=== PATIENT | female | born 1960 | race Caucasian/White ===

== ENCOUNTER → 2017-12-10 | Outpatient (CLI) | payer OTHER ==
--- NOTE | 2017-12-10 18:06 | WOMENS IMAGING REPORT ---
EXAM DESCRIPTION: BILAT SCREENING MAMMO W/CAD COMPLETED DATE/TIME: 12/10/2017 8:56 am REASON FOR STUDY: SCREENING MAMMO Z12.31 ENCNTR SCREEN MAMMOGRAM FOR MALIGNANT NEOPLASM OF HARI COMPARISON: 2014 TECHNIQUE: Standard craniocaudal and mediolateral oblique views of each breast recorded using digita l acquisition. LIMITATIONS: None. FINDINGS: Findings present which are benign by mammographic criteria. No suspicious masses, calcifi cations or architectural distortion. Pertinent benign findings: Stable bilateral breast parenchymal calcifications, right breast intramamm augusto node 11 to 12 o'clock position Read with the assistance of CAD. .[facility] - R2 Cenova Version 1.3 .[facility] Imaging - R2 Cenova Version 1.3 .[facility] Imaging - R2 Cenova Version 2.4 .[facility] - R2 Cenova Version 2.4 .REPLACED BY [facility] - R2 Head Of Commission Department Version 9.2 Benign mammographic findings may include one or more of the following: Smooth masses, popcorn/rim/co arse calcifications, asymmetries, post-procedure changes, and lesions with long-standing stability. IMPRESSION: BENIGN MAMMOGRAPHIC FINDINGS. BIRADS 2 BREAST DENSITY: b. There are scattered areas of fibroglandular density. BIRAD: 2 BENIGN FINDING(S) RECOMMENDATION: ROUTINE SCREENING yearly Please consider bilateral screening tomosynthesis in November 2018 COMMENT: The patient has been notified of the results by letter per SA requirements. Additional no tification policies are in place for contacting patient with suspicious or incomplete findings. Quality ID #[id number]: The [employer] recommends an annual screening mammogram for women aged 40 years or over. This facility utilizes a reminder system to ensure that all patients receive reminder letters, and/or direct phone calls for appointments. This includes reminders for routine scr eening mammograms, diagnostic mammograms, or other Breast Imaging Interventions when appropriate. Th is patient will be placed in the appropriate reminder system. The [employer] (ACR) has developed recommendations for screening MRI of the breast s in certain patient populations, to be used in conjunction with mammography. Breast MRI surveillanc e may be appropriate for women with more than 20% lifetime risk of developing breast cancer as deter mined by genetic testing, significant family history of the disease, or history of mantle radiation f or Hodgkins Disease. ACR Practice Guidelines 2008. TECHNICAL DOCUMENTATION: FINDING NUMBER: (1) ASSESSMENT: (1) JOB ID: [id number] [employer]- All Rights Reserved
== END ==
LOC: WI 08:42
PROVIDERS: ATTEND Family Medicine
DX: Z12.31 Encounter for screening mammogram for malignant neoplasm of breast (principal)
CPT/HCPCS: 77067

== ENCOUNTER → 2019-07-02 | Outpatient (CLI) | payer OTHER ==
--- NOTE | 2019-07-02 12:43 | WOMENS IMAGING REPORT ---
EXAM DESCRIPTION: BILAT SCREENING MAMMO W/CAD COMPLETED DATE/TIME: 07/02/2019 8:51 am REASON FOR STUDY: Z12.31 ENCOUNTER FOR SCREENING MAMMOGRAM FOR MALIGNANT NEOPLASM OF BREAST Z12.31 ENCNTR SCREEN MAMMOGRAM FOR MALIGNANT NEOPLASM OF HARI COMPARISON: 12/10/2017 and 10/17/2015. EXAM PARAMETERS: Standard craniocaudal and mediolateral oblique views of each breast recorded using digital acquisition and breast tomosynthesis. Read with the assistance of CAD. .[facility] - R2 Linen Sorter Version 9.2 LIMITATIONS: None. FINDINGS: RIGHT BREAST MASSES: Previous U mass in the superior breast appears slightly smaller. No suspicious masses. CALCIFICATIONS: Stable calcifications. ARCHITECTURAL DISTORTION: None. DEVELOPING DENSITY: None. ASYMMETRY: None noted. OTHER: No other significant findings. LEFT BREAST MASSES: No suspicious masses. CALCIFICATIONS: Calcifications in the upper-outer breast, located 9 to 11 cm from the nipple, have in creased. ARCHITECTURAL DISTORTION: None. DEVELOPING DENSITY: None. ASYMMETRY: None noted. OTHER: No other significant findings. IMPRESSION: Increasing calcifications in the upper-outer left breast. Stable mammographic appearanc e of the right breast. 0 Incomplete: Needs Additional Imaging Evaluation and/or prior Mammograms for Comparison. BREAST DENSITY: b. There are scattered areas of fibroglandular density. BIRAD: ASSESSMENT: 0 Incomplete: Needs Additional Imaging Evaluation and/or prior Mammograms for C omparison. RECOMMENDATION: RECOMMENDED FOLLOW-UP: Recommend additional evaluation with magnification views of t he left breast. Recommend routine screening mammography of the right breast. The patient will be contacted for additional imaging. COMMENT: The patient has been notified of the results by letter per MQSA requirements. Additional no tification policies are in place for contacting patient with suspicious or incomplete findings. Quality ID #[id number]: [employer] recommends an annual screening mammogram for women aged 40 years or over. This facility utilizes a reminder system to ensure that all patients receive reminder letters, and/or direct phone calls for appointments. This includes reminders for routine scr eening mammograms, diagnostic mammograms, or other Breast Imaging Interventions when appropriate. Th is patient will be placed in the appropriate reminder system. TECHNICAL DOCUMENTATION: FINDING NUMBER: (1) ASSESSMENT: (1) JOB ID: [id number] [employer]- All Rights Reserved Reading location - IP/workstation name: [email or web address]
== END ==
LOC: WI 08:25
PROVIDERS: ATTEND Family Medicine
DX: Z12.31 Encounter for screening mammogram for malignant neoplasm of breast (principal)
CPT/HCPCS: 77067

== ENCOUNTER → 2019-07-07 | Outpatient (CLI) | payer OTHER ==
--- NOTE | 2019-07-07 09:28 | WOMENS IMAGING REPORT ---
EXAM DESCRIPTION: LEFT DIAGNOSTIC MAMMO W/CAD COMPLETED DATE/TIME: 07/07/2019 9:05 am REASON FOR STUDY: R92.0 MAMMOGRAPHIC MICROCALCIFICATION FOUND ON DIAGNOSTIC IMAGING OF BREAST R92.0 MAMMOGRAPHIC MICROCALCIFICATION FOUND ON DX IMAGING OF COMPARISON: Multiple since 2014 EXAM PARAMETERS: Compression magnification craniocaudal, 90 mediolateral and mediolateral oblique i mages of the breast recorded with digital acquisition. Read with the assistance of CAD. .[facility] - Studio Mach[employer] Linotype Version 9.2 LIMITATIONS: None. FINDINGS: BREAST LATERALITY: Left MASSES: No suspicious masses. CALCIFICATIONS: Calcifications variable in size shape density, left breast upper outer quadrant, 10 c m the nipple, for which stereotactic sampling is recommended. Calcifications of concern were marked with a lac courte oreilles. ARCHITECTURAL DISTORTION: None. DEVELOPING DENSITY: None. ASYMMETRY: None noted. OTHER: No other significant findings. IMPRESSION: Calcifications in the left breast upper outer quadrant 10 cm from the nipple for which s tereotactic biopsy is recommended BREAST DENSITY: b. There are scattered areas of fibroglandular density. BIRAD: ASSESSMENT: 4 Suspicious. Biopsy should be performed in the absence of clinical contra-indic ation. RECOMMENDATION: RECOMMENDED FOLLOW UP: Left breast stereotactic biopsy for microcalcifications SPECIFIC INTERVENTION/IMAGING/CONSULTATION RECOMMENDED:Left breast stereotactic biopsy for microcalci fications COMMUNICATION:Patient notified by letter COMMENT: The patient has been notified of the results by letter per MQSA requirements. Additional no tification policies are in place for contacting patient with suspicious or incomplete findings. Quality ID #[id number]: The [employer] recommends an annual screening mammogram for women aged 40 years or over. This facility utilizes a reminder system to ensure that all patients receive reminder letters, and/or direct phone calls for appointments. This includes reminders for routine scr eening mammograms, diagnostic mammograms, or other Breast Imaging Interventions when appropriate. Th is patient will be placed in the appropriate reminder system. TECHNICAL DOCUMENTATION: FINDING NUMBER: (1) ASSESSMENT: (1) JOB ID: [id number] [employer]- All Rights Reserved Reading location - IP/workstation name: [email or web address]
== END ==
LOC: WI 08:15
PROVIDERS: ATTEND Family Medicine
DX: R92.0 Mammographic microcalcification found on diagnostic imaging of breast (principal)

== ENCOUNTER → 2019-08-06 | Day surgery (SDC) | payer OTHER ==
[~2019-08-06] MED LIST: LIDOCAINE 1%/EPINEPHRINE INJ 20 ML VIAL ONE; LIDOCAINE 2% INJ (20 MG/ML) 20 ML MDV ONE
--- NOTE | 2019-08-11 16:15 | RADIOLOGY REPORT (SQ) ---
EXAM DESCRIPTION: STEREO BREAST BX; LEFT DIG DX MAMMO NO CHG COMPLETED DATE/TIME: 08/10/2019 11:44 am; 08/06/2019 2:29 pm REASON FOR STUDY: R92.0 MAMMOGRAPHIC MICROCALCIFICATION FOUND ON DX IMAGING OF BRST; POST STEREO CLI P PLACEMENT R92.0 MAMMOGRAPHIC MICROCALCIFICATION FOUND ON DX IMAGING OF COMPARISON: Multiple previous mammograms TECHNIQUE: Vacuum-assisted stereotactic-guided biopsy of the lesion in the left breast. Serial progr ess stereotactic and single digital images acquired. PROCEDURE: The procedure was discussed with the patient, including possible complications such as bleeding, infection, nondiagnostic sample or possible findings such as atypical ductal hyperplasia wh ich would require additional surgery. Possible clip placement was explained. The patient agreed t o the procedure. The patient was placed prone on the stereotactic table. The lesion in the breast was localized ster eotactically. The skin of the breast was prepped in sterile fashion. Superficial and deep local an esthesia was provided. A small incision was made in the skin and the biopsy probe was advanced to t he target. Using the vacuum-assisted core biopsy device, multiple core specimens were obtained. Continuous low dose infusion of local anesthesia was used during the procedure. A specimen radiograph was obtained. The radiograph demonstrated calcifications of concern in the bio psy tissue. Using [id number]-ap-[id number] technique a v-shaped clip was deployed at the biopsy site. Mammographic image confirmed presence of the clip. The probe was then removed and hemostasis obtained with man ual compression. A compression bandage was applied. Postoperative instructions were explained to the patient. POST-PROCEDURE TWO VIEW DIGITAL MAMMOGRAM: An additional two view mammogram was recorded in the [facility] mammographic suite. Marker clip is present at the biopsy site. LIMITATIONS: None. FINDINGS: PATHOLOGY: Fibroadenomatous changes with stromal calcifications. No carcinoma in situ or invasive carcinoma is identified CONCORDANT: Yes. POST PROCEDURE MAMMOGRAMS FOR MARKER PLACEMENT: Yes IMPRESSION: SUCCESSFUL STEREOTACTIC-GUIDED BIOPSY OF THE LESION IN THE LEFT BREAST. BIOPSY RESULTS ARE CONCORDANT WITH IMAGING FINDINGS. Benign calcifications associated with fibroadenomatous change. BI-RADS 2, benign findings FOLLOW-UP: Patient should resume yearly bilateral screening mammography/ tomosynthesis in June 2020 NOTIFICATION: These findings were discussed with the patient 1400 hours, 08/07/2019. She understands this was a benign biopsy, and to return to yearly screening. COMMENT: Patient medication list reviewed: Yes- Quality ID# [id number]:Eligible professional attests to doc umenting in the medical record they obtained, updated, or reviewed the patient's current medications. TECHNICAL DOCUMENTATION: JOB ID: [id number] [employer]- All Rights Reserved Reading location - IP/workstation name: [email or web address]
== END ==
LOC: RAD 08:22
PROVIDERS: ATTEND Family Medicine
DX: R92.0 Mammographic microcalcification found on diagnostic imaging of breast (principal); D24.2 Benign neoplasm of left breast
CPT/HCPCS: 88305 ×2; 19081; J3490 ×2

== ENCOUNTER 2020-02-11 07:07 | Emergency (ER) | payer OTHER ==
[2020-02-11] MEDS ORDERED: ONDANSETRON HCL INJ/PF 4 MG/2 ML SDV IV ONE (07:37)
[2020-02-11] MEDS ORDERED: HYDROMORPHONE HCL INJ/PF 2 MG/ML AMPULE IV ONE ×2 (07:37→10:53)
[2020-02-11 07:50] LABS: HEMATOCRIT 17.2 % (36.0-47.0); MEAN CORPUSCULAR HEMOGLOBIN 32.3 pg (27.0-33.4); MEAN CORPUSCULAR HGB CONC 33.8 g/dL (32.0-36.0); MEAN CORPUSCULAR VOLUME 96 fl (80-97); PLATELET COUNT 375 10^3/uL (150-450); RED CELL DISTRIBUTION WIDTH 18.9 % (11.5-14.0); WHITE BLOOD COUNT 10.9 10^3/uL (4.0-10.5)
[2020-02-11 07:59] LABS: ALBUMIN 3.5 g/dL (3.5-5.0); ALKALINE PHOSPHATASE 91 U/L (38-126); ANION GAP 9 (5-19); ASPARTATE AMINO TRANSFERASE 34 U/L (14-36); BILIRUBIN,DIRECT 0.4 mg/dL (0.0-0.4); BILIRUBIN,TOTAL 1.8 mg/dL (0.2-1.3); BLOOD UREA NITROGEN 23 mg/dL (7-20); CALCIUM 8.8 mg/dL (8.4-10.2); CARBON DIOXIDE 32 mmol/L (22-30); CHLORIDE 93 mmol/L (98-107); CREATINE KINASE 194 U/L (30-135); GLUCOSE 133 mg/dL (75-110); POTASSIUM 3.7 mmol/L (3.6-5.0); TOTAL PROTEIN 6.6 g/dL (6.3-8.2)
--- NOTE | 2020-02-11 08:22 | ER Document Report ---
Entered by GILLES SHAHID SCRIBE 02/11/20 0734 Acting as scribe for:LETITIA BERTRAND MD ED General - General Chief Complaint: Abdominal Pain >50 Stated Complaint: ABDOMINAL PAIN Time Seen by Provider: 02/11/20 07:22 Primary Care Provider: REGAN LEONARD MD [ACTIVE STAFF] - Follow up as needed Mode of Arrival: Medic Information source: Patient Cannot obtain history due to: Unstable vital signs Notes: This 59 year old female patient with recently diagnosed non-Hodgkin's lymphoma presents to the emergency department today with complaints of increased pain. Patient states that she woke up this morning to take the next dose of her pain medication and she sat up on the edge of the bed but could not stand due to pain. Patient is on oxycodone 15mg five times a day and oxycodone extended release 40 mg twice a day. Patient denies any trauma or new activity that she thinks could be causing this pain. TRAVEL OUTSIDE OF THE [place] IN LAST 30 DAYS: No - Related Data Allergies/Adverse Reactions: gatifloxacin [Gatifloxacin] Allergy (Severe, Verified 02/11/20 07:15) Hives nitrofurazone [Nitrofurazone] Allergy (Severe, Verified 02/11/20 07:15) Sloughs Skin Adhesive Bandage * [Adhesive Bandage] Allergy (Intermediate, Verified 02/11/20 07:15) Generalized rash Past Medical History - General Information source: Patient, [facility] Records, Outside Facility Records - Social History Smoking Status: Former Smoker - quit in 1980 Cigarette use (# per day): No Frequency of alcohol use: None Drug Abuse: None Lives with: Family Family History: Reviewed & Not Pertinent Patient has suicidal ideation: No Patient has homicidal ideation: No - Past Medical History Cardiac Medical History: Reports: Hx Hypertension Denies: Hx Heart Attack Pulmonary Medical History: Denies: Hx Asthma, Hx Bronchitis, Hx COPD, Hx Pneumonia Neurological Medical History: Denies: Hx Cerebrovascular Accident, Hx Seizures GI Medical History: Denies: Hx Hepatitis, Hx Hiatal Hernia, Hx Ulcer Musculoskeletal Medical History: Reports Hx Arthritis - neck,feet,back Infectious Medical History: Denies: Hx Hepatitis Past Surgical History: Denies: Hx Hysterectomy, Hx Mastectomy, Hx Open Heart Surgery, Hx Pacemaker Review of Systems - Review of Systems Constitutional: See HPI, Other - pain EENT: No symptoms reported Cardiovascular: No symptoms reported Respiratory: No symptoms reported Gastrointestinal: No symptoms reported Genitourinary: No symptoms reported Female Genitourinary: No symptoms reported Musculoskeletal: No symptoms reported Skin: No symptoms reported Hematologic/Lymphatic: No symptoms reported Neurological/Psychological: No symptoms reported -: Yes All other systems reviewed and negative Physical Exam - Vital signs Vitals: Resp Pulse Ox 9 L 94 02/11/20 07:22 02/11/20 07:22 - Notes Notes: Physical Exam: General: Alert, obese, pale, appears uncomfortable. HEENT: Normocephalic. Atraumatic. PERRL. Extraocular movements intact. Oropharynx clear. Neck: Supple. Non-tender. Respiratory: No respiratory distress. Clear and equal breath sounds bilaterally. Cardiovascular: Tachycardic, regular rhythm. Abdominal: Morbidly obese. LUQ abdominal tenderness with palpation. No distension. Normal Bowel Sounds. Back: No gross abnormalities. There are no abnormalities to the left flank. Extremities: Moves all four extremities. Upper extremities: Normal inspection. Normal ROM. Lower extremities: 2+ pitting edema bilaterally. Neurological: Normal cognition. AAOx4. Normal speech. Psychological: Normal affect. Normal Mood. Skin: Warm. Dry. Pale. Course - Vital Signs Vital signs: Temp Pulse Resp BP Pulse Ox 111 H 15 113/86 H 100 02/11/20 07:29 02/11/20 08:01 02/11/20 08:00 02/11/20 08:01 - Laboratory Result Diagrams: 02/11/20 07:30 02/11/20 07:30 Laboratory results interpreted by me: 02/11/20 02/11/20 07:30 07:30 WBC 10.9 H RBC 1.80 L Hgb 5.8 L Hct 17.2 L RDW 18.9 H Seg Neuts % (Manual) 87 H Lymphocytes % (Manual) 5 L Abs Neuts (Manual) 9.8 H Sodium 134.2 L Chloride 93 L Carbon Dioxide 32 H BUN 23 H Creatinine 1.42 H Est GFR ( Amer) 46 L Est GFR (MDRD) Non-Af 38 L Glucose 133 H Total Bilirubin 1.8 H Creatine Kinase 194 H Critical Care Note - Critical Care Note Total time excluding time spent on procedures (mins): 35 Discharge - Discharge Clinical Impression: Retroperitoneal hematoma Anemia Qualifiers: Anemia type: other cause Other causes of anemia: acute posthemorrhagic Qualified Code(s): D62 - Acute posthemorrhagic anemia Non Hodgkin's lymphoma Qualifiers: Non-Hodgkin lymphoma type: unspecified type Lymphoma site: unspecified region Qualified Code(s): C85.90 - Non-Hodgkin lymphoma, unspecified, unspecified site Condition: Stable Disposition: [facility] Referrals: REGAN LEONARD MD [ACTIVE STAFF] - Follow up as needed I personally performed the services described in the documentation, reviewed and edited the documentation which was dictated to the scribe in my presence, and it accurately records my words and actions.
[2020-02-11 08:32] LABS: HEMOGLOBIN 5.8 g/dL (12.0-15.5)
[2020-02-11 08:33] LABS: ABSOLUTE LYMPHOCYTES# (MANUAL) 0.5 10^3/uL (0.5-4.7); ABSOLUTE MONOCYTES # (MANUAL) 0.5 10^3/uL (0.1-1.4); ANISOCYTOSIS 2+; BAND NEUTROPHILS % (MANUAL) 3 % (3-5); BASOPHILS % (MANUAL) 0 % (0-2); EOSINOPHILS % (MANUAL) 0 % (0-6); LYMPHOCYTES % (MANUAL) 5 % (13-45); MONOCYTES % (MANUAL) 5 % (3-13); NUCLEATED RED BLOOD CELLS 4 /100 WBC (0); OVALOCYTES SLIGHT; POLYCHROMASIA 1+; SEGMENTED NEUTROPHILS % (MAN) 87 % (42-78); TOTAL CELLS COUNTED 100
[2020-02-11 08:34] LABS: PLATELET COMMENT ADEQUATE; STOMATOCYTES SLIGHT; TEAR DROP CELLS SLIGHT
--- NOTE | 2020-02-11 09:05 | RADIOLOGY REPORT (SQ) ---
EXAM DESCRIPTION: CT ABD/PELVIS NO ORAL OR IV COMPLETED DATE/TIME: 02/11/2020 8:42 am REASON FOR STUDY: LUQ pain,non-Hodgkins,recent L renal bx COMPARISON: None. TECHNIQUE: CT scan of the abdomen and pelvis performed without intravenous or oral contrast. Images reviewed with lung, soft tissue, and bone windows. Reconstructed coronal and sagittal MPR images revi ewed. All images stored on PACS. All CT scanners at this facility use dose modulation, iterative reconstruction, and/or weight based d osing when appropriate to reduce radiation dose to as low as reasonably achievable (ALARA). [facility]: Dose Right [facility]: CareDose [facility]: Dose Right [facility]: Teradose 4D [facility]: Quality Systems RADIATION DOSE: CT Rad equipment meets quality standard of care and radiation dose reduction techniq ues were employed. CTDIvol: 18.4 mGy. DLP: 991 mGy-cm.mGy. LIMITATIONS: None. FINDINGS: LOWER CHEST: There is a small left pleural effusion with associated atelectasis. NON-CONTRASTED LIVER, SPLEEN, ADRENALS: Evaluation limited by lack of IV contrast. No identified sign ificant masses. PANCREAS: No masses. No peripancreatic inflammatory changes. GALLBLADDER: Surgically absent. RIGHT KIDNEY AND URETER: No suspicious masses. Assessment limited by lack of IV contrast. No signif icant calcifications. Mild dilatation of the right collecting system secondary to the periaortic ad enopathy. LEFT KIDNEY AND URETER: The left kidney is displaced anteriorly and medially. No significant calcif ications. Mild dilatation of left collecting system secondary to ureteral obstruction secondary to periaortic adenopathy. AORTA AND RETROPERITONEUM: Large retroperitoneal hematoma containing various ages of blood products. Attenuation ranges from 48 to 5. Extensive periaortic and retroperitoneal adenopathy. BOWEL AND PERITONEAL CAVITY: Postsurgical changes in the epigastric region and right mid abdomen. No evidence of obstruction. APPENDIX: Normal. PELVIS, BLADDER, AND ABDOMINAL WALL:Subcutaneous edema with small soft tissue lesions. These could r epresent small hematomas. Does the patient have a known primary? Soft tissue metastasis cannot be e xcluded but thought to be less likely. BONES: No significant findings. OTHER: No other significant finding. IMPRESSION: Large left retroperitoneal hematoma. The hematoma measures 17.1 x 11.4 x 22.9 cm. Extensive retroperitoneal and periaortic adenopathy. Subcutaneous changes as described above. Small left effusion and left basilar atelectasis. COMMENT: Quality ID # [id number]: Final reports with documentation of one or more dose reduction techniques (e.g., Automated exposure control, adjustment of the mA and/or kV according to patient size, use of iterative reconstruction technique) TECHNICAL DOCUMENTATION: JOB ID: [id number] 2010 [employer]- All Rights Reserved Reading location - IP/workstation name: [email or web address]
[2020-02-11] MEDS ORDERED: NORMAL SALINE 250 ML IV PRN (09:51)
[2020-02-11 09:53] LABS: APPEARANCE,URINE CLOUDY; BILIRUBIN,URINE NEGATIVE (NEGATIVE); GLUCOSE, URINE NEGATIVE (NEGATIVE); KETONES,URINE NEGATIVE (NEGATIVE); LEUKOCYTE ESTERASE,URINE NEGATIVE (NEGATIVE); NITRITE,URINE NEGATIVE (NEGATIVE); PROTEIN,URINE NEGATIVE (NEGATIVE); URINE SPECIFIC GRAVITY 1.011; UROBILINOGEN,URINE NEGATIVE mg/dL (<2.0)
[2020-02-11 09:56] LABS: COLOR,URINE YELLOW
[2020-02-11 11:12] VITALS: BP 118/85
== END 2020-02-11 11:12 | disposition short-term general hospital (02) ==
LOC: ER 07:07
DX: K66.1 Hemoperitoneum (principal); D62 Acute posthemorrhagic anemia; R10.9 Unspecified abdominal pain; R00.0 Tachycardia, unspecified; E66.01 Morbid (severe) obesity due to excess calories; C85.90 Non-Hodgkin lymphoma, unspecified, unspecified site; Z79.899 Other long term (current) drug therapy; Z87.891 Personal history of nicotine dependence; Z88.8 Allergy status to other drugs, medicaments and biological substances; I10 Essential (primary) hypertension
CPT/HCPCS: 96376; 99291; 96374; 96375; 86900; 86901; 36415; 36430; 86850; 82550; 85025; 80053; 81001; 84484; 86920; 74176; P9016; J1170; J2405

== ENCOUNTER → 2020-03-08 | Outpatient (CLI) | payer OTHER ==
--- NOTE | 2020-03-08 13:55 | RADIOLOGY REPORT (SQ) ---
EXAM DESCRIPTION: PET CT SKULL/THIGH IMAGES COMPLETED DATE/TIME: 03/08/2020 12:53 pm REASON FOR STUDY: NON-HODGKINS LYMPHOMA C85.88 OTH TYPES OF NON-HODGKIN LYMPHOMA, LYMPH NODES MULT S Z51.11 ENCOUNTER FOR ANTINEOPLASTIC CHEMOTHERAPY COMPARISON: No prior pets, CT 02/11/2020 RADIONUCLIDE AND DOSE: 9.73 mCi F18 FDG The route of agent administration: Intravenous FASTING BLOOD SUGAR: 93 mg/dl CONTRAST TYPE AND DOSE: No CT contrast given. TECHNIQUE: Blood glucose level was verified. Above dose of FDG was injected intravenously. 2-D seg mented attenuation correction images were obtained from the base of the skull to the midthighs. Nonc ontrast CT images were obtained for attenuation correction and fusion with emission images. CT image s were performed without oral or intravenous contrast and are not sensitive for parenchymal lesions. A series of overlapping emission PET images were obtained. Images reviewed and manipulated at [facility] work station by the radiologist. Images stored on PACS. LIMITATIONS: Exam limited due to body habitus. . FINDINGS: HEAD AND NECK: Left supraclavicular adenopathy. For reference there is a enlarged 13 mm s hort axis node (series 3, image 42) with mild FDG uptake (max SUV 2.0). CHEST: No areas of abnormal metabolic activity in the chest. Stable [id number] left-sided pleu ral effusion associated basilar consolidation, likely atelectasis. Right-sided chest port with sarina ter tip at cavoatrial junction. ABDOMEN AND PELVIS: There is diffuse retroperitoneal adenopathy with mild heterogeneous FDG uptake th roughout (max SUV 4.2). Additional ill-defined iliac chain adenopathy with heterogeneous activity (m ax SUV 5.1). There has been interval decrease in size of the left retroperitoneal hematoma measuring 13.4 x 10 cm, previously 15 x 11 cm. No increased uptake centrally. Anasarca. Subcutaneous soft t issue nodules within anterior abdominal wall likely from subcutaneous injections. No significant inc reased uptake. Expected physiologic activity within the gastrointestinal and genitourinary system. Prior cholecystectomy. PROXIMAL LOWER EXTREMITIES: No areas of abnormal metabolic activity in the soft tissues of the lower extremities. There is asymmetric right lower extremity subcutaneous edema. BONES: No abnormal metabolic activity in the visualized skeleton. ADDITIONAL CT FINDINGS: As above. OTHER: Background hepatic activity max SUV 3.1. IMPRESSION: 1. Diffuse retroperitoneal and iliac chain adenopathy with heterogeneous increased upta ke (max SUV 5.1) compatible with given history of lymphoma. Enlarged left supraclavicular node witho ut significant increased uptake (max SUV 2.0). 2. Mild interval decrease in size of the large left retroperitoneal hematoma. No increased uptake t hroughout. 3. Asymmetric right lower extremity edema. Ultrasound could be considered for evaluation of venous thrombosis. 4. Stable scrf-[id number]-knafvtnx left-sided pleural effusion associated basilar atelectasis. TECHNICAL DOCUMENTATION: JOB ID: [id number] 2010 [employer]- All Rights Reserved Reading location - IP/workstation name: [email or web address]
== END ==
LOC: RAD 09:29
PROVIDERS: ATTEND Internal Medicine
DX: C85.88 Other specified types of non-Hodgkin lymphoma, lymph nodes of multiple sites (principal)
CPT/HCPCS: 78815; A9552

== ENCOUNTER → 2020-03-28 | Outpatient (CLI) | payer OTHER ==
--- NOTE | 2020-03-29 09:03 | RADIOLOGY REPORT (SQ) ---
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 RADIONUCLIDE AND DOSE: 25.8 mCi technetium 99m labeled red blood cells The route of agent administration: Intravenous TECHNIQUE: Following administration of the radionuclide, gated images of the heart are obtained in t hree projections. Left ventricular functional analysis performed. LIMITATIONS: None. FINDINGS: LEFT VENTRICULAR FUNCTION: EJECTION FRACTION: 79%. END-DIASTOLIC VOLUME: 82 mL. END-SYSTOLIC VOLUME: 26 mL. WALL MOTION: No focal wall motion abnormalities. OTHER: No other significant finding. IMPRESSION: NORMAL CARDIAC MUGA STUDY. NORMAL LEFT VENTRICULAR FUNCTION WITH VALUES ABOVE. TECHNICAL DOCUMENTATION: JOB ID: [id number] 2010 [employer]- All Rights Reserved Reading location - IP/workstation name: [email or web address]
== END ==
LOC: RAD 10:30
PROVIDERS: ATTEND Internal Medicine
DX: Z08 Encounter for follow-up examination after completed treatment for malignant neoplasm (principal); Z13.6 Encounter for screening for cardiovascular disorders; C82.38 Follicular lymphoma grade IIIa, lymph nodes of multiple sites
CPT/HCPCS: 78472; A9560; Q9969

== ENCOUNTER → 2020-04-27 | Outpatient (CLI) | payer OTHER ==
--- NOTE | 2020-04-27 12:13 | RADIOLOGY REPORT (SQ) ---
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 TECHNIQUE: CT scan of the chest performed using helical scanning technique with dynamic intravenous contrast injection. Images reviewed with lung, soft tissue and bone windows. Reconstructed coronal and sagittal MPR and MIP images reviewed. All images stored on PACS. All CT scanners at this facility use dose modulation, iterative reconstruction, and/or weight based d osing when appropriate to reduce radiation dose to as low as reasonably achievable (ALARA). [facility]: Dose Right [facility]: CareDose [facility]: Dose Right [facility]: Teradose 4D [facility]: [employer] CONTRAST TYPE AND DOSE: 96 mL Omnipaque 350- low osmolar. RENAL FUNCTION: Creatinine 0.7 milligrams/deciliter. RADIATION DOSE: CT Rad equipment meets quality standard of care and radiation dose reduction techniq ues were employed. CTDIvol: 8.3 - 16.6 mGy. DLP: 2070 mGy-cm. LIMITATIONS: None. FINDINGS: LUNGS AND PLEURA: The left pleural effusion has decreased in size from 03/08/2020 and the a eration of the left lower lobe has improved. There is no consolidation, ground-glass opacification, pneumothorax or greater than 6 mm pulmonary nodule. HILAR AND MEDIASTINAL STRUCTURES: No adenopathy or mass. HEART AND VASCULAR STRUCTURES: There is a variant 2 vessel arch with a common origin of the brachioce phalic and left common carotid arteries. There is no thoracic aortic dissection or aneurysm. There is no cardiomegaly or pericardial effusion. HARDWARE: The tip of the right IJ single-lumen port terminates within the SVC. UPPER ABDOMEN: Refer to the separate report of the CT of the abdomen. THYROID AND OTHER SOFT TISSUES: The previously described left supraclavicular adenopathy has resolved . There is no adenopathy or mass. BONES: No acute findings. OTHER: No other finding. IMPRESSION: 1. The previously described left supraclavicular adenopathy has resolved. 2. The left pleural effusion has decreased in size from 03/08/2020 and the aeration of the left lower lobe has improved. TECHNICAL DOCUMENTATION: JOB ID: [id number] Quality ID # [id number]: Final reports with documentation of one or more dose reduction techniques (e.g., Au tomated exposure control, adjustment of the mA and/or kV according to patient size, use of iterative reconstruction technique) 2010 [employer]- All Rights Reserved Reading location - IP/workstation name: [email or web address]
--- NOTE | 2020-04-27 12:34 | RADIOLOGY REPORT (SQ) ---
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 TECHNIQUE: CT scan of the abdomen and pelvis performed using helical scanning technique with dynamic intravenous contrast injection. No oral contrast. Images reviewed with lung, soft tissue, and bone windows. Reconstructed coronal and sagittal MPR images reviewed. Delayed images for evaluation of the urinary system also acquired. All images stored on PACS. All CT scanners at this facility use dose modulation, iterative reconstruction, and/or weight based d osing when appropriate to reduce radiation dose to as low as reasonably achievable (ALARA). [facility]: Dose Right [facility]: CareDose [facility]: Dose Right [facility]: Teradose 4D [facility]: [employer] CONTRAST TYPE AND DOSE: 96 mL Omnipaque 350- low osmolar. RENAL FUNCTION: GFR > 60. LIMITATIONS: None. FINDINGS: LOWER CHEST: Refer to the separate report of the CT of the chest. LIVER: The relative hypoattenuation of hepatic parenchyma is consistent with underlying hepatic steat osis. The portal veins are patent. There is no hepatic mass. SPLEEN: No splenomegaly or splenic mass. PANCREAS: No acute abnormality of the pancreas. GALLBLADDER: Surgically absent. ADRENAL GLANDS: No mass or asymmetry. RIGHT KIDNEY AND URETER: Symmetric renal uptake and excretion of the injected contrast. There is no solid mass, hydronephrosis, nephrolithiasis, hydroureter or ureterolithiasis. LEFT KIDNEY AND URETER: Symmetric renal uptake and excretion of the injected radiotracer. 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 The subcentimeter hypodense lesions scattered throughout the re nal cortex on the excretory phase are considered too small to characterize. There is no hydronephros is, nephrolithiasis, hydroureter or ureterolithiasis. AORTA AND VESSELS: No aneurysm or dissection of the abdominal aorta. There are hypodense filling def ects within the right femoral vein (image 91 of series 3). RETROPERITONEUM: The confluent retroperitoneal soft tissue / adenopathy that encases but does not lashanda row the abdominal aorta, IVC and iliac vessels has decreased in size compared to the PET from 03/08/20 20. The retroperitoneal hematoma that displaces the left kidney anteriorly has also decreased in siz e and it measures 11.2 x 6.7 x 16.7 cm (AP x transverse x craniocaudal) compared to 10 cm in transver se diameter and 13.4 cm in AP diameter on the prior PET. The internal attenuation of the hematoma tucker s also decreased and it measures 31.7 Hounsfield units compared to 41 Hounsfield units on the prior P ET. BOWEL AND PERITONEAL CAVITY: Status post Oziel-en-Y gastric bypass. There is no bowel obstruction, sofi wel wall thickening or pericolonic/ perienteric inflammation. There is no mesenteric adenopathy, zechariah e intraperitoneal fluid or mesenteric/ omental inflammation. APPENDIX: Normal. PELVIS: There is no abnormality of the uterus or adnexa that is apparent on CT. The urinary bladder is contracted. There are tortuous dilated vessels in the right hemipelvis - the vessels could repres ent venous collaterals. ABDOMINAL WALL: The subcutaneous nodules in the ventral abdominal wall could represent the sequela of subcutaneous injections. BONES: The lucent lesion along the inferior endplate of the L2 vertebral body is unchanged compared t o the CT from 02/11/2020. There is no fracture. OTHER: No other significant finding. IMPRESSION: 1. The confluent retroperitoneal soft tissue / adenopathy that encases but does not narr ow the abdominal aorta, IVC and iliac vessels has decreased in size compared to the PET from 0. 2. The retroperitoneal hematoma that displaces the left kidney anteriorly has also decreased in size and it measures 11.2 x 6.7 x 16.7 cm (AP x transverse x craniocaudal) compared to 10 cm in transverse diameter and 13.4 cm in AP diameter on the prior PET. The internal attenuation of the hematoma has a lso decreased and it measures 31.7 Hounsfield units compared to 41 Hounsfield units on the prior PET. 3. Hypodense filling defects within the right femoral vein (image 91 of series 3). Correlation with a venous Dopplers is recommended to exclude acute DVTs. 4. Other secondary findings as detailed above. TECHNICAL DOCUMENTATION: JOB ID: [id number] Quality ID # 436: Final reports with documentation of one or more dose reduction techniques (e.g., Au tomated exposure control, adjustment of the mA and/or kV according to patient size, use of iterative reconstruction technique) 2010 [employer]- All Rights Reserved Reading location - IP/workstation name: [email or web address]
== END ==
LOC: RAD 08:41
PROVIDERS: ATTEND Physician Assistant Medical
DX: C82.38 Follicular lymphoma grade IIIa, lymph nodes of multiple sites (principal)
CPT/HCPCS: 71260; 74177; 82565

== ENCOUNTER → 2020-07-07 | Outpatient (CLI) | payer OTHER ==
--- NOTE | 2020-07-07 12:55 | RADIOLOGY REPORT (SQ) ---
EXAM DESCRIPTION: VENOUS BILATERAL LOWER IMAGES COMPLETED DATE/TIME: 07/07/2020 10:31 am REASON FOR STUDY: ACUTE EMBOLISM I82.412 ACUTE EMBOLISM AND THROMBOSIS OF LEFT FEMORAL VEIN COMPARISON: None. TECHNIQUE: Dynamic and static black scale and color images acquired of both lower extremity venous sy stems. Selected spectral images acquired with additional compression and augmentation maneuvers. Imag es stored on PACS. LIMITATIONS: None. FINDINGS: RIGHT LEG COMMON FEMORAL AND FEMORAL: The common femoral vein remains patent. Nonocclusive chronic thrombosis seen within the proximal and mid femoral vein. POPLITEAL: Normal compression and augmentation. No visualized echogenic material on black scale. No de fects on color images. CALF VESSELS: Normal compression and augmentation. No visualized echogenic material on black scale. No defects on color image. GSV AND SSV: Normal compression. No visualized echogenic material on black scale. No defects on color images. ANY DEEP VENOUS INSUFFICIENCY: Not evaluated. ANY EVIDENCE OF POPLITEAL CYST: No. OTHER: No other significant finding. LEFT LEG COMMON FEMORAL AND FEMORAL: Normal phasicity, compression and augmentation. No visualized echogenic m aterial on black scale. No defects on color images. POPLITEAL: Normal compression and augmentation. No visualized echogenic material on black scale. No de fects on color images. CALF VESSELS: Normal compression and augmentation. No visualized echogenic material on black scale. No defects on color images. GSV AND SSV: Normal compression. No visualized echogenic material on black scale. No defects on color images. ANY DEEP VENOUS INSUFFICIENCY: Not evaluated. ANY EVIDENCE POPLITEAL CYST: No. OTHER: No other significant finding. IMPRESSION: Chronic thrombus is demonstrated within the right femoral vein. No evidence of left low er extremity deep venous thrombosis. TECHNICAL DOCUMENTATION: JOB ID: [id number] 2010 [employer]- All Rights Reserved Reading location - IP/workstation name: [email or web address]
== END ==
LOC: SP 08:54
PROVIDERS: ATTEND Physician Assistant Medical
DX: I82.412 Acute embolism and thrombosis of left femoral vein (principal)
CPT/HCPCS: 93970

== ENCOUNTER → 2020-07-12 | Outpatient (CLI) | payer OTHER ==
--- NOTE | 2020-07-13 09:04 | RADIOLOGY REPORT (SQ) ---
EXAM DESCRIPTION: PET CT SKULL/THIGH IMAGES COMPLETED DATE/TIME: 07/12/2020 3:11 pm REASON FOR STUDY: FOLLICULAR LYMPHOMA (C82.38) C82.38 FOLLICULAR LYMPHOMA GRADE IIIA, LYMPH NODES M ULT SITE COMPARISON: PET-CT dated 03/08/2020, CT abdomen pelvis dated 04/27/2020 RADIONUCLIDE AND DOSE: 11.1 mCi F18 FDG The route of agent administration: Intravenous FASTING BLOOD SUGAR: 85 mg/dl CONTRAST TYPE AND DOSE: No CT contrast given. TECHNIQUE: Blood glucose level was verified. Above dose of FDG was injected intravenously. 2-D seg mented attenuation correction images were obtained from the base of the skull to the midthighs. Nonc ontrast CT images were obtained for attenuation correction and fusion with emission images. CT image s were performed without oral or intravenous contrast and are not sensitive for parenchymal lesions. A series of overlapping emission PET images were obtained. [facility] by the radiologist. Images stored on PACS. LIMITATIONS: None. FINDINGS: HEAD AND NECK: No areas of abnormal metabolic activity in the soft tissues of the head and neck. CHEST: No areas of abnormal metabolic activity in the chest. ABDOMEN AND PELVIS: No areas of abnormal metabolic activity in the abdomen or pelvis. Expected physi ologic activity is present in the genitourinary system and bowel. PROXIMAL LOWER EXTREMITIES: No areas of abnormal metabolic activity in the soft tissues of the lower extremities. BONES: No abnormal metabolic activity in the visualized skeleton. ADDITIONAL CT FINDINGS: Left retroperitoneal hematoma is again noted. Retroperitoneal soft tissue at tenuation continues to decrease in size. Left pleural effusion is no longer identified. OTHER: No other significant findings. IMPRESSION: Negative PET-CT consistent with positive response to therapy. Retroperitoneal soft tiss ue mass continues to decrease in size. Left-sided retroperitoneal hematoma has decreased in size as well. TECHNICAL DOCUMENTATION: JOB ID: [id number] 2010 [employer]- All Rights Reserved Reading location - IP/workstation name: [email or web address]
== END ==
LOC: RAD 07:44
PROVIDERS: ATTEND Physician Assistant Medical
DX: C82.38 Follicular lymphoma grade IIIa, lymph nodes of multiple sites (principal)
CPT/HCPCS: 78815; A9552

== ENCOUNTER → 2020-10-03 | Outpatient (CLI) | payer OTHER ==
--- NOTE | 2020-10-03 14:35 | RADIOLOGY REPORT (SQ) ---
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 TECHNIQUE: CT scan of the chest performed using helical scanning technique with dynamic intravenous contrast injection. Images reviewed with lung, soft tissue and bone windows. Reconstructed coronal and sagittal MPR and MIP images reviewed. All images stored on PACS. All CT scanners at this facility use dose modulation, iterative reconstruction, and/or weight based d osing when appropriate to reduce radiation dose to as low as reasonably achievable (ALARA). [facility]: Dose Right [facility]: CareDose [facility]: Dose Right [facility]: Teradose 4D [facility]: [employer] CONTRAST TYPE AND DOSE: 89 mL Omnipaque 350- low osmolar. RENAL FUNCTION: Creatinine 0.7 milligrams/deciliter. RADIATION DOSE: CT Rad equipment meets quality standard of care and radiation dose reduction techniq ues were employed. CTDIvol: 7.2 - 13.0 mGy. DLP: 1630 mGy-cm. LIMITATIONS: None. FINDINGS: LUNGS AND PLEURA: The trachea and main bronchi are patent. There is no acute consolidatio n, ground-glass opacification, pleural effusion, pleural thickening or pulmonary nodule. HILAR AND MEDIASTINAL STRUCTURES: No adenopathy or mass. HEART AND VASCULAR STRUCTURES: No aneurysm or dissection of the thoracic aorta. No cardiomegaly or p ericardial effusion. HARDWARE: The tip of the right IJ single-lumen port projects within the SVC. UPPER ABDOMEN: Refer to the separate report of the CT of the abdomen. THYROID AND OTHER SOFT TISSUES: No adenopathy or mass. BONES: No fracture or osseous lesion. OTHER: No other findings. IMPRESSION: No acute cardiopulmonary process. TECHNICAL DOCUMENTATION: JOB ID: [id number] Quality ID # 436: Final reports with documentation of one or more dose reduction techniques (e.g., Au tomated exposure control, adjustment of the mA and/or kV according to patient size, use of iterative reconstruction technique) 2010 [employer]- All Rights Reserved Reading location - IP/workstation name: [email or web address]
--- NOTE | 2020-10-03 14:47 | RADIOLOGY REPORT (SQ) ---
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 TECHNIQUE: CT scan of the abdomen and pelvis performed using helical scanning technique with dynamic intravenous contrast injection. No oral contrast. Images reviewed with lung, soft tissue, and bone windows. Reconstructed coronal and sagittal MPR images reviewed. Delayed images for evaluation of the urinary system also acquired. All images stored on PACS. All CT scanners at this facility use dose modulation, iterative reconstruction, and/or weight based d osing when appropriate to reduce radiation dose to as low as reasonably achievable (ALARA). [facility]: Dose Right [facility]: CareDose [facility]: Dose Right [facility]: Teradose 4D [facility]: [employer] CONTRAST TYPE AND DOSE: contrast/concentration: Isovue 350.00 mmol/ml; Total Contrast Delivered: 89. 0 ml; Total Saline Delivered: 70.0 ml RENAL FUNCTION: GFR > 60. LIMITATIONS: None. FINDINGS: LOWER CHEST: Refer to the separate report of the CT of the chest. LIVER: The relative low attenuation of hepatic parenchyma compared to the splenic parenchyma on the p ortal venous phase is suggestive and aligned hepatic steatosis. The portal veins are patent. There is no hepatic mass. SPLEEN: No splenomegaly or splenic mass. PANCREAS: No acute gross abnormality of the pancreas. GALLBLADDER: The gallbladder surgically absent ADRENAL GLANDS: No mass or asymmetry. RIGHT KIDNEY AND URETER: No solid mass, hydronephrosis, nephrolithiasis, hydroureter or ureterolithia sis. LEFT KIDNEY AND URETER: No solid mass, hydronephrosis, nephrolithiasis, hydroureter or ureterolithias is. VASCULATURE: No aneurysm or dissection of the abdominal aorta. RETROPERITONEUM: The confluent low-attenuation soft tissue that encases but does not narrow the abdom inal aorta and iliac vessels has decreased in size compared to the CT from 04/27/2020 and on the coron al reconstruction has a thickness of 4 mm compared to 8 mm on the prior CT. The left-sided retroperitoneal hematoma has decreased in size and it measures 3.4 cm in transverse di ameter (compared to 6.5 cm on the prior CT) 10.7 cm in craniocaudal diameter and 6.5 cm in AP diamete r. The degree of mass effect upon the adjacent structures (in particular the left kidney) has also de creased. BOWEL AND PERITONEAL CAVITY: Status post gastric bypass. There is no bowel obstruction, bowel wall t hickening or pericolonic/ perienteric inflammation. There is no mesenteric adenopathy, free intraper itoneal fluid or mesenteric/ omental inflammation. APPENDIX: Unable to identify the appendix. There is no pericecal inflammation. PELVIS: Urinary bladder is contracted. There is no abnormality of the uterus or adnexa that is appar ent on CT. ABDOMINAL WALL: The round subcutaneous densities in the ventral abdomen could be injection related. There is no abdominal wall hernia. BONES: Degenerative spondylosis and facet joint arthropathy of the lumbar spine. There is no fractur e or osseous lesion. OTHER: No other findings. IMPRESSION: 1. The confluent low-attenuation soft tissue that encases but does not narrow the abdom inal aorta and iliac vessels has decreased in size compared to the CT from 04/27/2020 and on the coron al reconstruction has a thickness of 4 mm compared to 8 mm on the prior CT. 2. The left-sided retroperitoneal hematoma has decreased in size and it measures 3.4 cm in transverse diameter (compared to 6.5 cm on the prior CT) 10.7 cm in craniocaudal diameter and 6.5 cm in AP diam eter. The degree of mass effect upon the adjacent structures (in particular the left kidney) has also decreased. TECHNICAL DOCUMENTATION: JOB ID: [id number] Quality ID # 436: Final reports with documentation of one or more dose reduction techniques (e.g., Au tomated exposure control, adjustment of the mA and/or kV according to patient size, use of iterative reconstruction technique) 2010 [employer]- All Rights Reserved Reading location - IP/workstation name: [email or web address]
== END ==
LOC: RAD 09:17
PROVIDERS: ATTEND Internal Medicine
DX: C82.38 Follicular lymphoma grade IIIa, lymph nodes of multiple sites (principal); K66.1 Hemoperitoneum; Z98.84 Bariatric surgery status; Z98.0 Intestinal bypass and anastomosis status; M47.896 Other spondylosis, lumbar region
CPT/HCPCS: 71260; 74177; 82565

== ENCOUNTER → 2020-10-24 | Outpatient (CLI) | payer OTHER ==
--- NOTE | 2020-10-24 12:46 | WOMENS IMAGING REPORT ---
EXAM DESCRIPTION: 3D SCREENING MAMMO BILAT IMAGES COMPLETED DATE/TIME: 10/24/2020 10:06 am REASON FOR STUDY: Z12.31 ENCOUNTER FOR SCREENING MAMMOGRAM FOR MALIGNANT NEOPLASM OF BREAST Z12.31 ENCNTR SCREEN MAMMOGRAM FOR MALIGNANT NEOPLASM OF HARI COMPARISON: 2014 and subsequent. EXAM PARAMETERS: Standard craniocaudal and mediolateral oblique views of each breast recorded using digital acquisition and breast tomosynthesis. Read with the assistance of CAD. .[facility] - [employer] Version 9.2 LIMITATIONS: None. FINDINGS: Findings present which are benign by mammographic criteria. No suspicious masses, calcific ations or architectural distortion. Pertinent benign findings: Focal asymmetry and the deep lateral right breast just anterior to the claudia st wall. Nonprogressive over time. Stable scattered calcifications bilaterally which look benign. Benign mammographic findings may include one or more of the following: Smooth masses, popcorn/rim/coa rse calcifications, asymmetries, post-procedure changes, and lesions with long-standing stability. IMPRESSION: BENIGN MAMMOGRAPHIC FINDINGS. BIRADS 2 BREAST DENSITY: b. There are scattered areas of fibroglandular density. BIRAD: ASSESSMENT: 2 BENIGN FINDING(S) RECOMMENDATION: ROUTINE SCREENING COMMENT: The patient has been notified of the results by letter per SA requirements. Additional no tification policies are in place for contacting patient with suspicious or incomplete findings. Quality ID #225: The [employer] recommends an annual screening mammogram for women aged 40 years or over. This facility utilizes a reminder system to ensure that all patients receive reminder letters, and/or direct phone calls for appointments. This includes reminders for routine scr eening mammograms, diagnostic mammograms, or other Breast Imaging Interventions when appropriate. Th is patient will be placed in the appropriate reminder system. TECHNICAL DOCUMENTATION: FINDING NUMBER: (1) ASSESSMENT: (1) JOB ID: [id number] 2010 [employer]- All Rights Reserved Reading location - IP/workstation name: [email or web address]
== END ==
LOC: WI 09:39
PROVIDERS: ATTEND Family Medicine
DX: Z12.31 Encounter for screening mammogram for malignant neoplasm of breast (principal)
CPT/HCPCS: 77063; 77067